=== PATIENT | female | born 1975 | race Caucasian/White ===

== ENCOUNTER 2017-10-30 11:24 | Emergency (ER) | payer BC ==
[~2017-10-30] VITALS: Ht 172.7 cm; Wt 127.0 kg
--- NOTE | ~2017-10-30 | EKG ---
[place] [address] [facility] [place] [address] ELECTROCARDIOGRAM REPORT Name: ANGY ORTIZY Jennifer Room #: DEP [facility]#: [id number] Admission: 10/30/17 Attend Phys: Discharge: 10/30/17 Date of : 75 Report #: [id number] THIS REPORT FOR: //name// [facility] ED Test Date: 2017-10-30 Test Time: 11:55:04 Pat Name: FLORIN LEAL Department: Room: Gender: F [employer]: [facility] : 1975 Requested By: Юлия Deluca Order Number: [id number] MD: Sheng Alexis Measurements Intervals [place] Rate: 76 P: 10 TX: 192 QRS: 8 QRSD: 97 T: 22 QT: 386 QTc: 435 Interpretive Statements Sinus rhythm Abnormal R-wave progression, early transition Probable left ventricular hypertrophy No previous ECG available for comparison Electronically Signed On 10-30-2017 15:46:59 CDT by Sheng Alexis [email or web address] <ELECTRONICALLY SIGNED> By: Sheng Alexis MD 10/30/17 1546 [id number] MD ALISHA Townsend
[~2017-10-30 11:24] MED LIST: FISH OIL + VIT1 EACH PO; IBUPROFEN 800800 M1 PO; IBUPROFEN200 M2 PO; MUCINEX600 MG; MULTIVITAMINS1 EAC7 PO; NORCO 5-325 TA1 EACH PO; NORFLEX100 MG PO; OSELB75 PO; RANITIDINE 150150 M1 PO; VENTOLIN17 GM INH; ZANTAC 150MG T150 M1 PO; ZPAK PO
[2017-10-30 11:59] LABS: ABSOLUTE NEUTROPHILS 5.4 thou/uL (1.4-8.2); BASOPHILS 0.7 % (0.0-2.0); EOSINOPHILS 1.5 % (0.0-3.0); HEMATOCRIT 41.8 % (37.0-47.0); LYMPHOCYTES 28.4 % (24.0-44.0); MCH 28.8 pg (26.0-34.0); MCHC 33.4 g/dL (28.0-37.0); MCV 86.1 fL (80.0-100.0); MONOCYTES 4.6 % (1.0-8.0); PLATELET COUNT 283 thou/uL (150-400); POLYS 64.8 % (36.0-66.0); RBC 4.85 mil/uL (4.20-5.00); RDW 13.5 % (10.5-14.5); WBC 8.3 thou/uL (4.0-11.0)
[2017-10-30 12:08] LABS: ANION GAP 8 mmol/L (7-16); BUN 14 mg/dL (7-18); CHLORIDE 101 mmol/L (98-107); CO2 31 mmol/L (21-32); CREATININE 0.8 mg/dL (0.6-1.0); GLUCOSE 125 mg/dL (74-106); POTASSIUM 3.4 mmol/L (3.5-5.1); SODIUM 140 mmol/L (136-145)
[2017-10-30 12:17] LABS: TROPONIN-I < 0.04 ng/mL (<0.06)
[2017-10-30] MEDS ORDERED: HYDROCHLOROTHIA25 M2 PO (12:52)
[2017-10-30] MEDS ORDERED: WELLBUTRIN SR150 MG PO (12:53)
[2017-10-30] MEDS ORDERED: PROTONIX40 M1 PO (12:53)
[2017-10-30 13:00] VITALS: BP 131/76
== END 2017-10-30 13:00 | disposition home or self-care (01) ==
LOC: ER 11:24
PROVIDERS: Emergency Medicine
DX: R00.2 Palpitations (principal); R07.89 Other chest pain; I10 Essential (primary) hypertension; R06.02 Shortness of breath; E11.9 Type 2 diabetes mellitus without complications; E78.00 Pure hypercholesterolemia, unspecified; Z90.89 Acquired absence of other organs; Z88.6 Allergy status to analgesic agent